=== PATIENT | female | born 1980 | race Caucasian/White ===

== ENCOUNTER → 2017-07-27 | Outpatient (CLI) | payer BC ==
[~2017-07-27] MED LIST: CLC100 PO; MTR600X PO; OXYC5TAB PO; PRENTAB26 PO
--- NOTE | 2017-07-27 12:10 | DIAGNOSTIC IMAGING REPORT ---
ABDOMEN ULTRASOUND FOR HERNIA CLINICAL HISTORY: K42.9 Umbilical hernia COMPARISON STUDY: None. FINDINGS: Small partially reducible fat-containing umbilical hernia. The hernia sac measures 1.9 cm. The hernia neck measures 6 mm. IMPRESSION: Small partially reducible fat-containing umbilical hernia. Electronically signed by: Maxwell Slaughter M.D. 07/27/2017 12:09 PM Dictated Date/Time: 07/27/2017 12:08 PM
== END | disposition home or self-care (01) ==
LOC: C.ULTR 11:44
PROVIDERS: ATTEND Internal Medicine
DX: K42.9 Umbilical hernia without obstruction or gangrene (principal)

== ENCOUNTER → 2017-08-06 | Outpatient (CLI) | payer BC ==
[2017-08-06 12:15] LABS: BLOOD UREA NITROGEN 15 mg/dl (7-18); BUN/CREATININE RATIO 20.1 (10-20); CARBON DIOXIDE 30 mmol/L (21-32); CHLORIDE 106 mmol/L (98-107); CHOLESTEROL 151 mg/dl (0-200); CREATININE 0.73 mg/dl (0.60-1.20); GLUCOSE 87 mg/dl (70-99); POTASSIUM 3.6 mmol/L (3.5-5.1); SODIUM 140 mmol/L (136-145); TRIGLYCERIDES 92 mg/dl (0-150); VERY LOW DENSITY LIPOPROT CALC 18 mg/dl
[2017-08-06 12:18] LABS: CHOLESTEROL/HDL RATIO 2.8; HDL CHOLESTEROL 54 mg/dl; LDL CHOLESTEROL CALCULATED 79 mg/dl
== END | disposition home or self-care (01) ==
LOC: C.LABBFT 08:24
PROVIDERS: ATTEND Nurse Practitioner
DX: Z13.220 Encounter for screening for lipoid disorders (principal); Z13.1 Encounter for screening for diabetes mellitus

== ENCOUNTER → 2017-09-07 | Outpatient (CLI) | payer BC | END | disposition home or self-care (01) | LOC: C.PAPS 18:16 | PROVIDERS: ATTEND Obstetrics & Gynecology | DX: Z12.4 Encounter for screening for malignant neoplasm of cervix (principal) ==

== ENCOUNTER → 2017-09-07 | Outpatient (CLI) | payer BC | END | disposition home or self-care (01) | LOC: C.LABSPEC 15:38 | PROVIDERS: ATTEND Obstetrics & Gynecology | DX: N89.8 Other specified noninflammatory disorders of vagina (principal) ==